=== PATIENT | male | born 1995 | race Caucasian/White ===

== ENCOUNTER 2020-02-22 14:39 | Emergency (ER) | payer MEDICAID, OTHER ==
[~2020-02-22] VITALS: Ht 182.9 cm; Wt 69.0 kg
--- NOTE | 2020-02-22 15:48 | NUR ---
PT STATES HE FELT A LUMP IN UPPER ARM THIS AM; WORSENED TODAY. FIRM LUMP PALPATED IN MEDIAL DISTAL UPPER ARM. PT DENIES TRAUMA. PAIN IN SHOULDER, + NUMBNESS IN HAND. PT RT HANDED. EMPLOYEED A [employer].
[2020-02-22 15:54] VITALS: BP 111/58
--- NOTE | 2020-02-22 16:25 | NUR ---
BREAK RN: PT WATCHING TV IN ROOM. VS STABLE. NO ACUTE DISTRESS NOTED. WILL CONTINUE TO MONITOR WHILE PRIMARY RN IS ON BREAK.
[2020-02-22 16:26] LABS: BASOPHILS % (AUTO) 0 % (0-1); EOSINOPHILS % (AUTO) 0 % (1-7); LYMPHOCYTES % (AUTO) 26 % (22-44); MEAN CORPUSCULAR HEMOGLOBIN 32.4 pg (27.5-34.5); MEAN CORPUSCULAR HGB CONC 33.9 g/dL (33.2-36.2); MONOCYTES % (AUTO) 8 % (2-9); NEUTROPHILS % (AUTO) 66 % (42-75); PLATELET COUNT 274 x10^3/uL (130-400); RED BLOOD COUNT 4.96 x10^6/uL (4.38-5.82); RED CELL DISTRIBUTION WIDTH 13.5 % (9.4-14.8)
--- NOTE | 2020-02-22 16:26 | NUR ---
PT ENDORSED TO BREAK RN.
[2020-02-22 16:34] LABS: ALBUMIN 4.1 g/dL (3.4-5.0); ANION GAP 3 mmol/L (5-15); CALCIUM 9.1 mg/dL (8.5-10.1); CHLORIDE 107 mmol/L (98-107); CREATININE 0.96 mg/dL (0.7-1.3)
[2020-02-22 16:41] LABS: MD NO
--- NOTE | 2020-02-22 16:53 | NUR ---
BREAK RN: US IN ROOM
--- NOTE | 2020-02-22 17:07 | NUR ---
REPORT GIVEN TO DUC RIVAS
--- NOTE | 2020-02-22 17:08 | NUR ---
PT REPORT FROM DORIAN RITTER RN. PT CARE TO BE RESUMED.
--- NOTE | 2020-02-22 17:44 | NUR ---
PT AND HIS BELONGINGS NOT IN ROOM
== END 2020-02-22 18:07 | disposition left against medical advice (07) ==
LOC: ED 18:00
DX: R59.0 Localized enlarged lymph nodes (principal); M79.601 Pain in right arm; R06.02 Shortness of breath; F17.200 Nicotine dependence, unspecified, uncomplicated
CPT/HCPCS: 36415; 71045; 80048; 82040; 85025; 99285